=== PATIENT | female | born 1985 | race Two or more races ===

== ENCOUNTER → 2020-03-14 | Outpatient (CLI) | payer BC, MEDICAID ==
[~2020-03-14] MED LIST: LEVO125T5 PO
[2020-03-14 09:38] LABS: MICROSCOPIC AUTO
[2020-03-14 09:53] LABS: MEAN CORPUSCULAR HEMOGLOBIN 29.3 pg (27.0-34.8); MEAN CORPUSCULAR HGB CONC 32.3 g/dL (32.4-35.8); MEAN CORPUSCULAR VOLUME 90.8 fL (80-100); MEAN PLATELET VOLUME 7.6 fL (7.4-10.4); PLATELET COUNT 292 x10^3/uL (130-400); RED BLOOD COUNT 5.09 x10^6/uL (3.82-5.3); RED CELL DISTRIBUTION WIDTH 14.1 % (9.6-15.2)
[2020-03-14 10:23] LABS: BASOPHILS # (AUTO) 0.02 x10^3/uL (0-0.1); BASOPHILS % (AUTO) 0 % (0-1); EOSINOPHILS # (AUTO) 0.24 x10^3/uL (0-0.4); EOSINOPHILS % (AUTO) 3 % (1-7); LYMPHOCYTES # (AUTO) 2.64 x10^3/uL (1-3.4); LYMPHOCYTES % (AUTO) 32 % (22-44); MD SCAN; MONOCYTES % (AUTO) 7 % (2-9); NEUTROPHILS # (AUTO) 4.74 x10^3/uL (1.8-6.8); NEUTROPHILS % (AUTO) 58 % (42-75)
== END | disposition home or self-care (01) ==
LOC: STAR 08:50
PROVIDERS: ATTEND Obstetrics & Gynecology
DX: Z01.818 Encounter for other preprocedural examination (principal)
CPT/HCPCS: 36415; 81001; 85025; 87086

== ENCOUNTER 2020-03-19 11:59 | Day surgery (SDC) | payer BC, MEDICAID ==
[~2020-03-19] VITALS: Ht 167.6 cm; Wt 98.0 kg
[2020-03-19] MEDS ORDERED: CHLORHEXIDINE 15 ML UDC MM ONE (12:30)
[2020-03-19 12:33] VITALS: BP 119/87
[2020-03-19] MEDS ORDERED: SCOPOLAMINE 1MG PATCH TD SCH (13:00)
[2020-03-19] MEDS ORDERED: GABAPENTIN 300 MG CAPSULE PO ONE (13:00)
[2020-03-19] MEDS ORDERED: ACETAMINOPHEN 500 MG TABLET PO ONE (13:00)
[2020-03-19] MEDS ORDERED: LACTATED RINGERS 1,000 ML IV SCH (13:00)
[2020-03-19 13:06] LABS: HCG UR SG 1.016 (1.003-1.030)
[2020-03-19] MEDS ORDERED: OXYcodone 5 MG/5 ML ORAL.SOL UDC PO PRN (14:00)
[2020-03-19] MEDS ORDERED: MEPERIDINE/PF 25MG/0.5ML IVPush PRN (14:00)
[2020-03-19] MEDS ORDERED: EPHEDRINE 50 MG/ML, 1ML IVPush PRN (14:00)
[2020-03-19] MEDS ORDERED: hydrALAzine 20 MG/ML, 1ML IV PRN (14:00)
[2020-03-19] MEDS ORDERED: LABETALOL 5MG/ML, 20ML IV PRN (14:00)
[2020-03-19] MEDS ORDERED: FENTANYL PF 100 MCG/2ML IV PRN (14:00)
[2020-03-19] MEDS ORDERED: ONDANSETRON 2MG/ML, 2ML IVPush PRN (14:00)
[2020-03-19] MEDS ORDERED: HYDROmorphone 1 MG/ML, 1ML INJ IVPush PRN (14:00)
[2020-03-19] MEDS ORDERED: PROMETHAZINE 25 MG/ML, 1ML IVPush PRN (14:00)
[2020-03-19] MEDS ORDERED: MIDAZOLAM 1 MG/ML, 2ML ONE (14:29)
[2020-03-19] MEDS ORDERED: FENTANYL PF 100 MCG/2ML ONE ×3 (14:29→16:59)
[2020-03-19] MEDS ORDERED: BUPIVACAINE/PF-EPI 0.25% 1:200K ONE (15:42)
[2020-03-19] MEDS ORDERED: SILVER NITRATE STICK TP ONE (15:42)
[2020-03-19] MEDS ORDERED: KETOROLAC 30 MG/1 ML ONE ×2 (16:04→16:14)
[2020-03-19] MEDS ORDERED: CEFAZOLIN 1,000 MG ONE (16:04)
[2020-03-19] MEDS ORDERED: LIDOCAINE PF 2%, 5ML ONE (16:04)
[2020-03-19] MEDS ORDERED: ROCURONIUM 10MG/ML,5ML ONE (16:06)
[2020-03-19] MEDS ORDERED: PROPOFOL 10 MG/ML, 20ML ONE (16:06)
[2020-03-19] MEDS ORDERED: ONDANSETRON 2MG/ML, 2ML ONE (16:06)
[2020-03-19] MEDS ORDERED: DEXAMETHASONE 4 MG/ML, 1ML ONE (16:06)
[2020-03-19] MEDS ORDERED: SUCCINYLCHOLINE 20 MG/ML, 10ML ONE (16:06)
[2020-03-19] MEDS ORDERED: LIDOCAINE-MPF 2% ,5ML ONE (16:14)
[2020-03-19] MEDS ORDERED: SUGAMMADEX 200 MG/2 ML IVPush ONE (16:16)
[2020-03-19] MEDS ORDERED: MEPERIDINE/PF 25MG/ML,1ML ONE (16:59)
[2020-03-19] MEDS ORDERED: OXYcodone 5 MG/5 ML ORAL.SOL UDC ONE (17:12)
[2020-03-19] MEDS ORDERED: OXYcodone/APAP 5/325MG TABLET ONE (17:52)
[2020-03-19] MEDS ORDERED: OXYcodone/APAP 5/325MG TABLET PO PRN (18:00)
== END 2020-03-19 18:45 | disposition home or self-care (01) ==
LOC: OUT 11:59
PROVIDERS: ATTEND Obstetrics & Gynecology
DX: Z30.2 Encounter for sterilization (principal); N83.8 Other noninflammatory disorders of ovary, fallopian tube and broad ligament; E03.9 Hypothyroidism, unspecified; Z98.890 Other specified postprocedural states; Z87.891 Personal history of nicotine dependence; Z79.899 Other long term (current) drug therapy; Z72.89 Other problems related to lifestyle; Z82.49 Family history of ischemic heart disease and other diseases of the circulatory system; Z82.5 Family history of asthma and other chronic lower respiratory diseases
CPT/HCPCS: 58661; 81025; 88302; J0330; J0690; J1100; J1885; J2175; J2250; J2405; J2704; J3010; J7120; 36415; 87635